=== PATIENT | male | born 1990 | race Caucasian/White ===

== ENCOUNTER 2016-08-25 17:34 | Inpatient (IN) | payer SELFPAY ==
[~2016-08-25] VITALS: Ht 177.8 cm; Wt 67.2 kg
--- NOTE | ~2016-08-25 | DS ---
Unit #: [id number] #: [id number] Patient: TENNILLE FRYE [id number] [address] [address] [id number] I MR#: [id number] NAME: TENNILLE FRYE ROOM: 330 Age: 26 Sex: M Admission Date: 08/25/2016 : 1990 Discharge Date: Attending Physician: Estela Rodriguez M.D. DISCHARGE SUMMARY DISCHARGE DIAGNOSIS Drug overdose. The patient is on 72-hour hold with one-on-one sitter, waiting on [facility] to evaluate. The patient is medically stable to go to [facility]. highway maintenance worker from [facility] will come and evaluate him, if the patient is eligible for inpatient [facility] I am going to transfer if not I am going to discharge the patient home and follow with [facility] as an outpatient. History of polysubstance abuse, advised to quit. No medical problems. CONSULTATIONS [facility]. PROCEDURES None. LAB DATA WBC 9.5, hemoglobin 13.9, platelets 239, sodium 139, potassium 3.7, creatinine 1.0. ALLERGIES None. DISCHARGE MEDICATIONS None. This patient is medically stable to go to [facility]. The patient can be discharged home if not eligible for inpatient [facility]. Follow with family physician in one week's time. Follow with outpatient [facility] in [id number] days' time. Dictated by... Bijan Ortega Unit #: [id number] #: [id number] Patient: TENNILLE FRYE TD: 08/26/2016 14:55 JOB #: [id number] DISCHARGE SUMMARY Page 1 of 1 X Estela Rodriguez MD X DISCHARGE SUMMARY
--- NOTE | ~2016-08-25 | HP ---
Unit #: [id number] #: [id number] Patient: TENNILLE FRYE [id number] [id number] [facility]. [place], [place] [address] [id number] I MR#: [id number] NAME: TENNILLE FRYE ROOM: 330 Age: 26 Sex: M Admission Date: 08/25/2016 : 1990 Attending Physician: Matti Burden M.D. HISTORY AND PHYSICAL CHIEF COMPLAINT Drug overdose. DISCUSSION This is a 26-year-old gentleman who has a history of daily heroin use, also uses occasionally cocaine, marijuana, alcohol two to three times a week. He lives with his girlfriend, is unemployed. He said he was unable to obtain heroin and then he went to his cousin's house and he said he took a many pills and he does not know what kind they were, some of them were Xanax also and he was eventually brought to the [facility] for the overdose and he has been on 1:1 sitter for 72-hour hold though at this time he is alert, oriented x3. He is denying any complaint. He denies any hurting himself and [facility] was on diversion and patient has been admitted here until [facility] gets a bed and then he will be transferred over there eventually to [facility]. At this time he is alert, oriented x3. He is denying any complaint. No chest pain. He denies any history of hurting himself, denies fever, chills, cough or other complaint. PAST MEDICAL HISTORY He denies any medical problem. PAST SURGICAL HISTORY He denies any surgical history. FAMILY HISTORY He denies any family that is contributory to his current case. SOCIAL HISTORY He admits to drinking, using heroin on a daily basis, occasionally he uses also cocaine and marijuana and also he drinks alcohol two or three times a week. PHYSICAL EXAMINATION GENERAL: On examination a middle-aged man lying in the bed comfortably, currently not in any distress. On general examination he is alert, awake, oriented x3, comfortable, not in any distress. VITAL SIGNS: Vitals are following: Temperature 98.2, heart rate 54, respiratory rate 18, blood pressure 143/97. HEENT: On HEENT examination pupils equally react to light and accommodation. Head is normocephalic and atraumatic. NECK: Supple. No JVD. HEART: S1, S2, regular rate and rhythm. LUNGS: Clear to auscultation bilaterally. No rhonchi. No wheezing. Unit #: [id number] #: [id number] Patient: FREES,TENNILLE ABDOMEN: Soft, nontender and nondistended. Bowel sounds positive. EXTREMITIES: Inspection normal. No cyanosis. No clubbing. No edema. NEUROLOGIC: No focal neurological deficit. DIAGNOSTIC STUDIES LABORATORY: Workup from [facility] is following: White count 7, hemoglobin 14, hematocrit 30.9, platelets 241. Urinalysis was negative. Sodium 139, potassium 3.4, chloride 110, CO2 22 and the bilirubin total 1.2, creatinine 0.83. Urine toxicology was negative. Alcohol level was 52. ASSESSMENT AND PLAN 1. Drug overdose: The patient is currently on 1:1 sitter, 72-hour hold. Patient has been waiting for [facility] to evaluate. 2. History of polysubstance abuse. Dictated by Bijan Arriaga TD: 08/25/2016 22:52 JOB #: [id number] HISTORY AND PHYSICAL Page 1 of 1 X X HISTORY AND PHYSICAL
[2016-08-26 07:30] LABS: HEMATOCRIT 42.4 % (38.0-50.0); HEMOGLOBIN 13.9 gm/dL (13.0-16.0); MEAN CORPUSCULAR HEMOGLOBIN 29.9 PG (28-34); MEAN CORPUSCULAR HGB CONC 32.8 g/dL (30-36); MEAN PLATELET VOLUME 8.3 FL (6.5-11.5); RED BLOOD COUNT 4.66 X10e (3.90-5.60); RED CELL DISTRIBUTION WIDTH 12.9 % (11.0-15.5); WHITE BLOOD COUNT 9.5 X10e3 (4.0-10.5)
[2016-08-26 08:03] LABS: CALCIUM SERUM 9.1 mg/dL (8.4-10.2); POTASSIUM 3.7 mmol/L (3.5-5.1)
== END 2016-08-26 18:11 | DRG 918 ==
LOC: C3A PCU 17:34
PROVIDERS: Internal Medicine
DX: T42.4X1A Poisoning by benzodiazepines, accidental (unintentional), initial encounter (principal); F11.10 Opioid abuse, uncomplicated; Y92.009 Unspecified place in unspecified non-institutional (private) residence as the place of occurrence of the external cause; F14.10 Cocaine abuse, uncomplicated; F12.10 Cannabis abuse, uncomplicated
CPT/HCPCS: 80048; 85027

== ENCOUNTER 2016-08-26 14:00 | Inpatient (IN) | payer SELFPAY ==
[~2016-08-26] VITALS: Ht 177.8 cm; Wt 68.0 kg
--- NOTE | ~2016-08-26 | PA ---
Unit #: [id number] #: [id number] Patient: BRANDON FRYE [id number] [facility] [address] [place] [address] [id number] I MR#: [id number] NAME: BRANDON FRYE ROOM: P212 Age: 26 Sex: M Admission Date: 08/26/2016 : 1990 Date of Assessment: 08/27/2016 Attending Physician: Collins Leal M.D. Admitting Physician: Collins Leal M.D. Primary Care Physician: Primary Care Physician No PSYCHIATRIC ASSESSMENT DATE OF SERVICE 08/27/2016 INFORMANTS The patient, reliable. [facility], reliable. [facility], reliable. CHIEF COMPLAINT Detox and overdose. HISTORY OF PRESENT ILLNESS Brandon Frye is a 26-year-old man, who stated that he has been using heroin since 2012 and only uses through the nasal inhalation route. He was at his brother's house trying to detox and took a number of Xanax to help with the detox symptoms. He said that he "thought I would have a high tolerance" and this turned out to be an excessive amount of alprazolam. He was evaluated in the emergency room and [facility] and further monitoring. PAST PSYCHIATRIC HISTORY No previous inpatient detox or treatment. He has no other psychiatric diagnosis and no psychiatric medications. FAMILY PSYCHIATRIC HISTORY Both sides of the patient's family have a history of substance abuse and nonspecified mental illness. SOCIAL HISTORY The patient denies a history of childhood abuse or neglect. He is a single heterosexual man, who is currently living with his girlfriend. He is a high-school graduate with some college, who lost his job recently due to drug use. He has a history of being in the [employer]. PAST MEDICAL HISTORY No chronic medical problems. MEDICATIONS None currently. ALLERGIES No known medication allergies. SUBSTANCE USE HISTORY Unit #: [id number] #: [id number] Patient: BRANDON FRYE As noted, the patient has been snorting heroin for about 3 years. He occasionally uses illicit benzodiazepines and drinks beer daily. MENTAL STATUS EXAMINATION The patient presented as a mildly disheveled man, who appeared his stated age. He was cooperative with the examination. His speech was clearly articulated, and easily understood. Musculoskeletal examination was calm. His mood was euthymic with a congruent affect. He was alert and fully oriented. His memory and concentration were fair. Thought processes were goal directed with no active psychosis. He denied suicidal ideation, intent, or plan. Insight and judgment, fair. Fund of knowledge and abstraction, fair. ASSETS AND LIABILITIES The patient knows local resources and presents voluntarily for treatment. Liabilities include difficulty establishing sobriety. ADMITTING DIAGNOSES AXIS I: Opioid dependence with withdrawal, uncomplicated. Benzodiazepine abuse. AXIS II: No diagnosis. AXIS III: Polysubstance withdrawal. AXIS IV: AXIS V: PSYCHIATRIC PLAN Brandon was admitted and placed on the opioid detox protocol. Physical examination will be repeated, and [facility] will be reviewed and repeated if necessary. TREATMENT GOALS Establishment of sobriety, improvement in insight, and improvement in coping skills. DISCHARGE PLANNING Follow up with chemical dependency programing of the patient's choice. ESTIMATED LENGTH OF STAY 5 days. Dictated by... Collins Leal M.D. JCARLOS/eusebia TD: 08/28/2016 04:30 JOB #: [id number] Unit #: [id number] #: [id number] Patient: BRANDON FRYE PSYCHIATRIC ASSESSMENT Page 1 of 1 X Collins Leal MD X PSYCHIATRIC ASSESSMENT
--- NOTE | ~2016-08-26 | HP ---
Unit #: [id number] #: [id number] Patient: TENNILLE FRYE [id number] [facility] [address] [place] [address] [id number] I MR#: [id number] NAME: TENNILLE FRYE ROOM: P212 Age: 26 Sex: M Admission Date: 08/26/2016 : 1990 Attending Physician: Collins Leal M.D. Admitting Physician: Collins Leal M.D. Primary Care Physician: Primary Care Physician No HISTORY AND PHYSICAL The patient is a 26-year-old male admitted to [address] [place] [address] on 08/26/2016 for a drug overdose. The patient had a recent admission to [facility] on 08/25/2016 where a full history and physical was complete. That history and physical has been reviewed, no changes need to be made. Dictated by... Ml Gomez/junior TD: 08/28/2016 01:21 JOB #: [id number] HISTORY AND PHYSICAL Page 1 of 1 X SILVIA RAYA APRN X HISTORY AND PHYSICAL
[2016-08-27 14:56] LABS: BASOPHIL% 0.5 % (0-2.5); EOSINOPHIL# 0.1 X10e3 (0-0.7); EOSINOPHIL% 0.7 % (0.0-7.0); HEMATOCRIT 44.5 % (38.0-50.0); HEMOGLOBIN 14.6 gm/dL (13.0-16.0); LYMPHOCYTE# 2.5 X10e3 (1.0-3.5); LYMPHOCYTE% 27.5 % (17.0-45.0); MEAN CELL VOLUME 90.5 FL (83-96); MEAN CORPUSCULAR HEMOGLOBIN 29.7 PG (28-34); MEAN CORPUSCULAR HGB CONC 32.8 g/dL (30-36); MEAN PLATELET VOLUME 8.8 FL (6.5-11.5); MONOCYTE# 0.6 X10e3 (0-1.0); MONOCYTE% 6.6 % (3.0-12.0); NEUTROPHIL# 5.9 X10e3 (1.5-7.1); NEUTROPHIL% 64.7 % (40-75); PLATELET COUNT 262 X10e3 (140-420); RED BLOOD COUNT 4.92 X10e (3.90-5.60); RED CELL DISTRIBUTION WIDTH 12.7 % (11.0-15.5); WHITE BLOOD COUNT 9.1 X10e3 (4.0-10.5)
[2016-08-27 15:06] LABS: DIFF IND NO
[2016-08-27 15:28] LABS: ALBUMIN SERUM 4.3 g/dL (3.5-5.0); BILIRUBIN,TOTAL 0.3 mg/dL (0.2-2.0); BUN/CREATININE RATIO 11.81; CREATININE SERUM 1.1 mg/dL (0.6-1.4); GLOM FILT RATE Estimated 90.9 mL/min (>60); POTASSIUM 4.7 mmol/L (3.5-5.1); PROTEIN TOTAL SERUM 6.7 g/dL (6.0-8.3)
[2016-08-28 12:53] LABS: AMPHETAMINE NEG (NEG); BARBITURATES NEG (NEG); BENZODIAZEPINES NEG (NEG); COCAINE NEG (NEG); MARIJUANA NEG (NEG); OPIATES NEG (NEG); TRICYCLIC ANTIDEPRESSANTS NEG (NEG); U METHADONE NEG (NEG)
== END 2016-08-28 15:05 | disposition home or self-care (01) | DRG 897 ==
LOC: P2S 17:29
PROVIDERS: Psychiatry & Neurology Psychiatry
PROC: HZ2ZZZZ Detoxification Services for Substance Abuse Treatment (ICD-10-PCS; principal; 2016-08-27)
DX: F11.23 Opioid dependence with withdrawal (principal); F19.10 Other psychoactive substance abuse, uncomplicated
CPT/HCPCS: 80048; 80053; 80307; 85025; 85027

== ENCOUNTER 2016-09-06 17:58 | Inpatient (IN) | payer OTHER ==
[~2016-09-06] VITALS: Ht 177.8 cm; Wt 68.0 kg
--- NOTE | ~2016-09-06 | HP ---
Unit #: [id number] #: [id number] Patient: TENNILLE FRYE [id number] [facility] [address] [place] [address] [id number] I MR#: [id number] NAME: TENNILLE FRYE ROOM: P211 Age: 26 Sex: M Admission Date: 09/06/2016 : 1990 Attending Physician: Collins Leal M.D. Admitting Physician: Collins Leal M.D. Primary Care Physician: Primary Care Physician No HISTORY AND PHYSICAL NOTE The patient is a 26-year-old male admitted to [address] [place] [address] on 09/06/2016 for suicidal ideations and the detox from heroin. The patient had a recent admission to this facility and also a recent admission on 08/25/2016 to [facility] where complete history and physical was done. This history and physical has been reviewed. No changes need to be made. Dictated by... Ml Gomez/bzg TD: 09/08/2016 09:32 JOB #: [id number] HISTORY AND PHYSICAL Page 1 of 1 X SILVIA RAYA APRN X HISTORY AND PHYSICAL
--- NOTE | ~2016-09-06 | PN ---
Unit #: [id number] #: [id number] Patient: BRANDON FRYE [id number] [facility] [address] [place] [address] [id number] I MR#: [id number] NAME: BRANDON FRYE ROOM: P211 Age: 26 Sex: M Admission Date: 09/06/2016 : 1990 Attending Physician: Collins Leal M.D. Admitting Physician: Collins Leal M.D. Primary Care Physician: Primary Care Physician Radha NAVARRO PROGRESS NOTES DATE 09/10/2016 DISCUSSION Brandon continues to have difficulty with transportation. He has minimal detox symptoms today and his mood is euthymic. He feels ready to leave the hospital when this is available. ASSESSMENT Opioid dependence, major depression. PLAN We will continue current treat plan anticipating discharge tomorrow when transportation is available. Dictated by... Bijan Mena/junior TD: 09/11/2016 23:40 JOB #: [id number] [facility] PROGRESS NOTES Page 1 of 1 X Collins Leal MD PROGRESS NOTE
--- NOTE | ~2016-09-06 | PN ---
Unit #: [id number] #: [id number] Patient: BRANDON FRYE [id number] [facility] [address] [place] [address] [id number] I MR#: [id number] NAME: BRANDON FRYE ROOM: P211 Age: 26 Sex: M Admission Date: 09/06/2016 : 1990 Attending Physician: Collins Leal M.D. Admitting Physician: Collins Leal M.D. Primary Care Physician: Primary Care Physician Radha NAVARRO PROGRESS NOTES DATE 09/08/2016 DISCUSSION Brandon says he is improved today with no further suicidal ideation. His mood is better with a brighter range of effect, and he is tolerating his medication with no adverse side effects. Detox is proceeding at expected pace. He is alert and fully oriented with no psychosis. ASSESSMENT Major depression, opiate dependence. PLAN The patient states that he feels he will be ready for discharge over the weekend and we will begin planning towards this. Dictated by... Bijan Mena/macario TD: 09/12/2016 09:53 JOB #: [id number] [facility] PROGRESS NOTES Page 1 of 1 X Collins Leal MD PROGRESS NOTE
--- NOTE | ~2016-09-06 | DS ---
Unit #: [id number] #: [id number] Patient: TENNILLE FRYE [id number] [facility] [address] [place] [address] [id number] I MR#: [id number] NAME: TENNILLE FRYE ROOM: [facility] Age: 26 Sex: M Admission Date: 09/06/2016 : 1990 Discharge Date: 09/10/2016 Attending Physician: Collins Leal M.D. Primary Care Physician: Primary Care Physician No DISCHARGE SUMMARY REASON FOR ADMISSION Tennille is a 26-year-old man just discharged from this facility who apparently relapsed on heroin after leaving this hospital and developed suicidal ideation. He was unable to contract for safety and was admitted for stabilization. LABORATORY DATA Please see hospital chart. HOSPITAL COURSE Patient was admitted and placed on the [facility] detox protocol. He had not started Celexa from his previous discharge and requested a change anyway, so Zoloft 50 mg daily was initiated for treatment of depression. He had a good response to inpatient care and made arrangements for his discharge in good order with no suicidal ideation, intent or plan. DISCHARGE DIAGNOSIS AXIS I: Opioid dependence withdrawal, uncomplicated, benzodiazepine abuse. Substance abuse mood disorder depressed. AXIS II: No diagnosis AXIS III: Polysubstance withdrawal, resolved. FOLLOW UP Instructed the patient to follow up with [facility] mental [facility]. DISCHARGE MEDICATIONS 1. Zoloft mg daily for depression 2. Trazodone 50 mg at bedtime as needed for insomnia. CONDITION ON DISCHARGE Improved. PROGNOSIS Fair if patient maintains sobriety and follow up. DIET AND ACTIVITY Ad maxime Dictated by... Collins Leal M.D. Unit #: [id number] #: [id number] Patient: TENNILLE FRYE [facility]/to TD: 09/13/2016 22:24 JOB #: [id number] DISCHARGE SUMMARY Page 1 of 1 X Collins Leal MD X DISCHARGE SUMMARY
--- NOTE | ~2016-09-06 | DS ---
Unit #: [id number] #: [id number] Patient: BRANDON FRYE [id number] [facility] [address] [place] [address] [id number] I MR#: [id number] NAME: BRANDON FRYE ROOM: [facility] Age: 26 Sex: M Admission Date: 09/06/2016 : 1990 Discharge Date: 09/10/2016 Attending Physician: Collins Leal M.D. Primary Care Physician: Primary Care Physician No DISCHARGE SUMMARY REASON FOR ADMISSION Brandon is a 26-year-old man who has been using heroin via nasal inhalation route. He also took a large number of Xanax in order to "help the detox" and accidentally overdosed on this medication. After emergency room evaluation, he was transferred [facility]. LABORATORY DATA Please see hospital chart. HOSPITAL COURSE Patient was admitted and placed on the [facility] detox protocol. He denied any suicidal ideation. Antidepressant medication was not indicated. After a brief period of inpatient detox, he has continued to contract for safety and stated that he wished to leave the hospital to pursue other treatment avenues. DISCHARGE DIAGNOSIS AXIS I: Opioid dependence withdrawal, uncomplicated, benzodiazepine abuse. AXIS II: No diagnosis. AXIS III: Polysubstance withdrawal, resolved. FOLLOW UP The patient to [facility] [place] [place]. DISCHARGE MEDICATIONS CONDITION ON DISCHARGE Fair. PROGNOSIS Fair to good. DISCHARGE DIET AND ACTIVITY Ad maxime. Dictated by... Collins Leal M.D. [facility]/to Unit #: [id number] #: [id number] Patient: BRANDON FRYE TD: 09/13/2016 22:20 JOB #: [id number] DISCHARGE SUMMARY Page 1 of 1 X Collins Leal MD X DISCHARGE SUMMARY
--- NOTE | ~2016-09-06 | PA ---
Unit #: [id number] #: [id number] Patient: BRANDON FRYE [id number] [facility] [address] [place] [address] [id number] I MR#: [id number] NAME: BRANDON FRYE ROOM: [facility] Age: 26 Sex: M Admission Date: 09/06/2016 : 1990 Date of Assessment: 09/07/2016 Attending Physician: Collins Leal M.D. Admitting Physician: Collins Leal M.D. Primary Care Physician: Primary Care Physician No PSYCHIATRIC ASSESSMENT DATE OF SERVICE 09/07/2016. INFORMANTS The patient, reliable; [facility] records, reliable; [place] office, reliable. CHIEF COMPLAINT Increasing suicidal ideation and heroin withdrawal. HISTORY OF PRESENT ILLNESS Brandon is a 26-year-old man, recently discharged from this facility, who came to [facility] reporting a relapse on heroin, but used by the nasal inhalation route and occasional use of benzodiazepine. He was admitted for stabilization at his request. PAST PSYCHIATRIC HISTORY One previous admission to this facility with brief sobriety afterwards. FAMILY PSYCHIATRIC HISTORY Both sides of the patient's family have a history of substance abuse and nonspecified mental illness. SOCIAL HISTORY The patient denies a history of childhood abuse or neglect. He is a single heterosexual man, currently living with his girlfriend. He is a [place] in the [employer]. He is a high school graduate with some college. He recently lost his job. PAST MEDICAL HISTORY No chronic medical problems. MEDICATIONS None. ALLERGIES No known medication allergies. SUBSTANCE ABUSE HISTORY The patient has been snorting history of heroin for about 3 years. He drinks beer and uses benzodiazepines on an illicit basis. MENTAL STATUS EXAMINATION Unit #: [id number] #: [id number] Patient: BRANDON FRYE He presented as a mildly disheveled man, who appeared his stated age. He was cooperative with the examination. Speech was spontaneous and easily understood. Musculoskeletal examination was calm. His mood was depressed with a congruent affect. He was alert and fully oriented. Memory and concentration were fair. Thought processes were goal directed with no active psychosis. He denied suicidal ideation at this time. Insight and judgment, fair. Fund of knowledge and abstraction, fair. ASSETS AND LIABILITIES The patient knows local resources and presents voluntarily for treatment. Liabilities include ongoing drug use. ADMITTING DIAGNOSES AXIS I: Opiate dependence with withdrawal, uncomplicated; and benzodiazepine abuse. AXIS II: No diagnosis. AXIS III: Polysubstance withdrawal. AXIS IV: AXIS V: PSYCHIATRIC PLAN Brandon was placed on the opioid detox protocol, and started on Zoloft 50 mg daily at his request for treatment of depression. He will enroll in psychotherapy groups and activities with dual diagnosis focus, and physical examination will be repeated as indicated. TREATMENT GOALS Resolution of intoxication, improvement in mood, improvement in insight, and improvement in coping skills. DISCHARGE PLANNING Follow up with Community [facility] and [facility]. ESTIMATED LENGTH OF STAY 5 days. Dictated by... Collins Leal M.D. JCARLOS/eusebia TD: 09/10/2016 12:21 JOB #: [id number] PSYCHIATRIC ASSESSMENT Page 1 of 1 X Collins Leal MD X PSYCHIATRIC ASSESSMENT
[2016-09-10 11:20] LABS: AMPHETAMINE NEG (NEG); BARBITURATES NEG (NEG); BENZODIAZEPINES NEG (NEG); COCAINE NEG (NEG); MARIJUANA NEG (NEG); OPIATES NEG (NEG); TRICYCLIC ANTIDEPRESSANTS NEG (NEG); U METHADONE NEG (NEG)
== END 2016-09-10 21:36 | disposition home or self-care (01) | DRG 897 ==
LOC: P2S 22:53
PROVIDERS: Psychiatry & Neurology Psychiatry
PROC: HZ2ZZZZ Detoxification Services for Substance Abuse Treatment (ICD-10-PCS; principal; 2016-09-06)
DX: F11.23 Opioid dependence with withdrawal (principal); F13.10 Sedative, hypnotic or anxiolytic abuse, uncomplicated; T14.91 Suicide attempt
CPT/HCPCS: 80307; 86592